=== PATIENT | female | born 1985 | race Caucasian/White ===

== ENCOUNTER 2018-02-15 12:30 | Emergency (ER) | payer OTHER ==
[~2018-02-15] VITALS: Ht 162.6 cm; Wt 63.5 kg
[2018-02-15 12:50] VITALS: BP 112/72
--- NOTE | 2018-02-15 14:26 | RAD ---
FOOT RIGHT 3V, ANKLE RIGHT 3V Clinical Indication: FALL TODAY Comparison: None. Findings: No acute fracture or dislocation of the ankle. Mineralization is normal. There is mild lateral ankle soft tissue swelling. Ankle mortise is intact. Bipartite medial sesamoid. No acute fracture of the foot. Joint spaces are maintained. No bony erosion. No soft tissue swelling is seen radiographically. IMPRESSION: No acute fracture. Electronically signed by: Mickey Murphy MD (02/15/2018 2:23 PM) [id number]
--- NOTE | 2018-02-15 14:39 | PHYS DOC ---
Adult General Chief Complaint Chief Complaint: FOOT INJURY PAIN [facility] HPI Patient is a 32 year old F who presents with right foot injury. She really states that just prior to arrival while walking on a grass she felt her ankle twisted inward. She fell to the ground however after which she was able to walk. She describes moderate pain on the outside of her ankle. Her pain is worse with movement and improved with rest and positioning. She has no other associated symptoms or exacerbating/alleviating factors. Review of Systems Review of Systems Constitutional: Denies fever or chills [] Eyes: Denies change in visual acuity, redness, or eye pain [] HENT: Denies nasal congestion or sore throat [] Respiratory: Denies cough or shortness of breath [] Cardiovascular: No additional information not addressed in HPI [] GI: Denies abdominal pain, nausea, vomiting, bloody stools or diarrhea [] : Denies dysuria or hematuria [] Musculoskeletal: Denies back pain Integument: Denies rash or skin lesions [] Neurologic: Denies headache, focal weakness or sensory changes [] Endocrine: Denies polyuria or polydipsia [] All other systems were reviewed and found to be within normal limits, except as documented in this note. Family History Family History No pertinent family medical history was reported Current Medications Current Medications Current medications reviewed Allergies Allergies Allergies Coded Allergies Type Severity Reaction Last Updated Verified Penicillins Allergy Intermediate 02/15/18 Yes Physical Exam Physical Exam Constitutional: Well developed, well nourished, no acute distress, non-toxic appearance. [] HENT: Normocephalic, atraumatic, bilateral external ears normal, oropharynx moist, no oral exudates, nose normal. [] Eyes: EOMI, conjunctiva normal, no discharge. [] Neck: Normal range of motion, no tenderness, supple, no stridor. [] Cardiovascular:Heart rate regular rhythm, no murmur [] Lungs & Thorax: Bilateral breath sounds clear to auscultation [] Abdomen: Bowel sounds normal, soft, no tenderness, no masses, no pulsatile masses. [] Extremities: Right ankle: Moderate swelling over the lateral ankle, tenderness to palpation anterior to the lateral malleolus over the SUZAN, range of motion normal, strength testing limited due to pain Neurologic: Alert and oriented X 3, normal motor function, normal sensory function, no focal deficits noted. [] Psychologic: Affect normal, judgement normal, mood normal. [] Current Patient Data Vital Signs Vital Signs Date Time Temp Pulse Resp B/P (MAP) Pulse Ox O2 Delivery O2 Flow Rate FiO2 02/15/18 12:50 98.2 58 20 100 Room Air EKG EKG [] Radiology/Procedures Radiology/Procedures Right foot and ankle x-ray Impressions: No acute disease noted Course & Med Decision Making Course & Med Decision Making Pertinent Labs and Imaging studies reviewed. (See chart for details) [] Dragon Disclaimer Dragon Disclaimer This electronic medical record was generated, in whole or in part, using a voice recognition dictation system. Departure Departure: Impression: Primary Impression: Right ankle sprain Disposition: HOME, SELF-CARE Condition: STABLE Referrals: PCP,UNKNOWN (PCP) Patient Instructions: Ankle Sprain Additional Instructions: Danielle was seen in the emergency department for ankle pain. No emergency medical condition was found on history or physical exam. She did have normal imaging of her foot. Her symptoms are most consistent with an ankle sprain. She is encouraged to consider lidocaine patches for pain. She was advised to continue daily activities as tolerated. She was also advised follow-up with her primary care doctor as needed for further management. Problem Qualifiers Primary Impression: Right ankle sprain Encounter type: initial encounter Involved ligament of ankle: anterior talofibular ligament Qualified Codes: S93.491A - Sprain of other ligament of right ankle, initial encounter LIZETH FLORES MD Feb 15, 2018 14:39
== END 2018-02-15 15:34 | disposition home or self-care (01) ==
LOC: ER 12:30
DX: S93.491A Sprain of other ligament of right ankle, initial encounter (principal); Z88.0 Allergy status to penicillin; W19.XXXA Unspecified fall, initial encounter; Y93.01 Activity, walking, marching and hiking; Y99.8 Other external cause status; Y92.89 Other specified places as the place of occurrence of the external cause
CPT/HCPCS: 73610; 73630; 99284